=== PATIENT | male | born 2000 | race Hispanic/Latino ===

== ENCOUNTER 2022-06-04 04:50 | Emergency (ER) | payer SELFPAY ==
[2022-06-04 04:58] VITALS: BP 147/83
[2022-06-04 05:01] VITALS: BP 140/86
[2022-06-04 05:30] LABS: URINE BLOOD DIPSTICK LARGE (NEGATIVE); URINE COLOR YELLOW; URINE GLUCOSE - DIPSTICK NEGATIVE (NEGATIVE); URINE KETONE NEGATIVE (NEGATIVE); URINE LEUK ESTERASE NEGATIVE (NEGATIVE); URINE PROTEIN - DIPSTICK 30 mg/dL (NEG-TRACE); URINE SPECIFIC GRAVITY >=1.030; URINE UROBILINOGEN - DIPSTICK 0.2 E.U./dL (0.2)
[2022-06-04 05:31] LABS: HEMATOCRIT 45.7 % (39.0-50.0); HEMOGLOBIN 15.3 g/dl (14.0-18.0); IMMATURE GRANULOCYTES 0.4 % (0.0-5.0); MEAN CELL VOLUME 87.9 fL CALC (80.0-100.0); MEAN CORPUSCULAR HGB 29.4 pG CALC (26.0-32.0); MEAN CORPUSCULAR HGB CONC 33.5 g/dL CAL (32.0-36.0); NEUT# 1.76 thou/uL (1.82-7.42); RED BLOOD COUNT 5.2 mill/uL (4.70-6.10); RED CELL DISTRI WIDTH 12.7 % (11.5-15.5)
[2022-06-04 05:43] LABS: URINE BILIRUBIN - DIPSTICK SMALL (NEGATIVE); URINE NITRITE - DIPSTICK NEGATIVE (Negative)
[2022-06-04 05:44] LABS: URINE RBC 50-100 RBC/hpf (0-5); URINE SQUAMOUS EPITHELIAL CELL FEW EPI/hpf (0-FEW); URINE WBC 0-2 WBC/hpf (0-5)
[2022-06-04 05:45] LABS: URINE BACTERIA MODERATE hpf
[2022-06-04 05:50] LABS: ALBUMIN 4.4 g/dL (3.2-5.0); ALKALINE PHOSPHATASE 57 u/l (38-126); ANION GAP 13 (6-22 (CALC)); BILIRUBIN, TOTAL 0.6 mg/dL (0.0-1.4); BUN 10 mg/dL (9-20); BUN/CREATININE RATIO 12 (12-20 (CALC)); CARBON DIOXIDE 29 mmol/l (22-30); CHLORIDE 104 mmol/l (95-108); CPK 155 u/l (52-200); CREATININE 0.8 mg/dL (0.7-1.3); GFR FOR AFR.AMER. > 60 ML/MIN (>=60 (CALC)); GFR OTHER RACES > 60 ML/MIN (>=60 (CALC)); SGOT/AST 31 u/l (17-59); SODIUM 141 mmol/l (137-146); TOTAL PROTEIN 6.9 g/dL (6.3-8.2)
[2022-06-04 05:58] LABS: MYOGLOBIN 25 ng/mL (0 - 121)
[2022-06-04 06:35] VITALS: BP 132/85
[2022-06-04 07:02] VITALS: BP 131/85
[2022-06-04 07:31] VITALS: BP 135/74
[2022-06-04] MEDS ORDERED: TORADOL PO (07:42)
[2022-06-04] MEDS ORDERED: TAMSULOSIN0.4 MG PO (07:42)
[2022-06-04] MEDS ORDERED: OMNICEF300 M1 PO (07:42)
[2022-06-04 07:46] VITALS: BP 146/90
== END 2022-06-04 07:55 | disposition home or self-care (01) | DRG 694 ==
LOC: ED 04:50
PROVIDERS: Family Medicine
DX: N20.1 Calculus of ureter (principal)